=== PATIENT | male | born 1945 | race Caucasian/White ===

== ENCOUNTER 2020-04-07 09:43 | Emergency (ER) | payer SELFPAY ==
[~2020-04-07] VITALS: Ht 165.1 cm; Wt 93.4 kg
[2020-04-07 09:46] VITALS: Ht 165.1 cm; Wt 93.4 kg
[2020-04-07 11:07] VITALS: BP 161/82
== END 2020-04-07 11:07 | disposition home or self-care (01) ==
LOC: ED 09:43
DX: H00.015 Hordeolum externum left lower eyelid (principal)